=== PATIENT | male | born 1955 | race Caucasian/White ===

== ENCOUNTER 2021-10-26 08:34 | Outpatient (REF) | payer OTHER, SELFPAY ==
[2021-10-26 11:42] LABS: Appearance Urine CLEAR; Color Urine YELLOW; Glucose Urine UA NEG (NEG); Leukocyte Esterase Urine NEG (NEG); Nitrite Urine NEG (NEG); Urine Blood NEG (NEG); Urine Ketones NEG (NEG); Urine Protein NEG (NEG-TRACE)
[2021-10-26 11:52] LABS: Hematocrit 46.5 % (42.0-52.0); Hemoglobin 15.1 g/dl (14.0-18.0); Mean Corpuscular HGB Conc 32.5 g/dl (31.0-36.0); Mean Corpuscular Hemoglobin 30.1 pg (27.0-33.0); Mean Corpuscular Volume 92.8 fL (80.0-98.0); Mean Platelet Volume 11.3 fL (9.4-12.4); Platelet Count 225 X10*3/uL (160-400); Red Blood Count 5.01 X10*6/uL (4.60-5.80); Red Cell Distribution Width 12.6 % (11.0-16.0)
[2021-10-26 12:03] LABS: Alanine Aminotransferase 27 U/L (0-40); Albumin Level 4.6 g/dL (3.5-5.0); Alkaline Phosphatase 65 U/L (39-117); Anion Gap 15 (12-20); Aspartate Amino Transferase 19 U/L (5-37); Bilirubin Total 0.6 mg/dL (0.0-1.0); Blood Urea Nitrogen 24 mg/dL (9-16); Calcium 9.9 mg/dL (8.4-10.2); Carbon Dioxide 25 mmol/L (22-29); Chloride 107 mmol/L (96-108); Cholesterol 158 mg/dL; Estimated Glomerular Filt Rate > 60; Glucose Fasting 133 mg/dL (60-99); HDL Cholesterol 45 mg/dL; LDL Cholesterol Calculated 98 mg/dl; Potassium 5.7 mmol/L (3.3-5.1); Sodium 141 mmol/L (135-145); Total Protein 7.5 g/dL (6.5-8.0); Triglycerides 76 mg/dL
[2021-10-26 12:09] LABS: RBC Urine 0-2 /HPF (0); WBC Urine 0-2 /HPF (0-4)
[2021-10-26 12:23] LABS: Estimated Average Glucose 157 mg/dL; Hemoglobin A1c % 7.1 %
[2021-10-26 12:26] LABS: Prostate Specific Antigen Scr 2.42 ng/mL (<0.05-4.0)
[2021-10-26 12:27] LABS: Creatinine Urine 52.73 mg/dL; Microalbum/Creatinine Ratio Ur 9.4 ug/mg cr
== END 2021-10-26 08:35 | disposition home or self-care (01) ==
LOC: HO.HMGCLDS 08:34
PROVIDERS: Visit Provider Internal Medicine
DX: E78.5 Hyperlipidemia, unspecified (principal); E11.9 Type 2 diabetes mellitus without complications; I10 Essential (primary) hypertension; Z98.890 Other specified postprocedural states; Z12.5 Encounter for screening for malignant neoplasm of prostate
CPT/HCPCS: 36415; 80053; 80061; 81001; 82043; 83036; 84153; 85027

== ENCOUNTER 2021-11-16 05:58 | Outpatient (REF) | payer OTHER, SELFPAY ==
[2021-11-16 12:31] LABS: Potassium 4.5 mmol/L (3.3-5.1)
== END 2021-11-16 05:59 | disposition home or self-care (01) ==
LOC: HO.HMGCLDS 05:58
PROVIDERS: Visit Provider Internal Medicine
DX: E87.5 Hyperkalemia (principal)
CPT/HCPCS: 36415; 84132

== ENCOUNTER 2022-01-23 05:59 | Outpatient (REF) | payer OTHER, SELFPAY ==
[2022-01-23 11:50] LABS: Estimated Average Glucose 131 mg/dL; Hemoglobin A1c % 6.2 %
[2022-01-23 11:55] LABS: Alanine Aminotransferase 38 U/L (0-40); Albumin Level 4.3 g/dL (3.5-5.0); Alkaline Phosphatase 63 U/L (39-117); Anion Gap 12 (12-20); Aspartate Amino Transferase 25 U/L (5-37); Bilirubin Total 0.7 mg/dL (0.0-1.0); Blood Urea Nitrogen 22 mg/dL (9-16); Calcium 9.4 mg/dL (8.4-10.2); Carbon Dioxide 25 mmol/L (22-29); Chloride 107 mmol/L (96-108); Cholesterol 144 mg/dL; Estimated Glomerular Filt Rate > 60; Glucose Fasting 117 mg/dL (60-99); HDL Cholesterol 45 mg/dL; LDL Cholesterol Calculated 88 mg/dl; Potassium 4.6 mmol/L (3.3-5.1); Sodium 139 mmol/L (135-145); Triglycerides 56 mg/dL
== END 2022-01-23 06:00 | disposition home or self-care (01) ==
LOC: HO.HMGCLDS 05:59
PROVIDERS: Visit Provider Internal Medicine
DX: E11.9 Type 2 diabetes mellitus without complications (principal); E78.5 Hyperlipidemia, unspecified; I10 Essential (primary) hypertension
CPT/HCPCS: 36415; 80053; 80061; 83036

== ENCOUNTER 2022-06-21 06:05 | Outpatient (REF) | payer OTHER, SELFPAY ==
[2022-06-21 11:51] LABS: Estimated Average Glucose 137 mg/dL; Hemoglobin A1c % 6.4 %
[2022-06-21 12:07] LABS: Alanine Aminotransferase 17 U/L (0-40); Albumin Level 4.4 g/dL (3.5-5.0); Alkaline Phosphatase 67 U/L (39-117); Anion Gap 15 (12-20); Aspartate Amino Transferase 14 U/L (5-37); Bilirubin Total 0.5 mg/dL (0.0-1.0); Blood Urea Nitrogen 22 mg/dL (9-16); Calcium 9.4 mg/dL (8.4-10.2); Carbon Dioxide 25 mmol/L (22-29); Chloride 105 mmol/L (96-108); Cholesterol 136 mg/dL; Estimated Glomerular Filt Rate > 60; Glucose Fasting 126 mg/dL (60-99); HDL Cholesterol 43 mg/dL; LDL Cholesterol Calculated 81 mg/dl; Potassium 5.2 mmol/L (3.3-5.1); Sodium 140 mmol/L (135-145); Total Protein 6.9 g/dL (6.5-8.0); Triglycerides 61 mg/dL
[2022-06-21 12:21] LABS: Creatinine Urine 70.02 mg/dL; Microalbum/Creatinine Ratio Ur 7.1 ug/mg cr
== END 2022-06-21 06:06 | disposition home or self-care (01) ==
LOC: HO.HMGCLDS 06:05
PROVIDERS: PCP Internal Medicine; Visit Provider Internal Medicine
DX: E11.9 Type 2 diabetes mellitus without complications (principal); E78.5 Hyperlipidemia, unspecified; I10 Essential (primary) hypertension
CPT/HCPCS: 36415; 80053; 80061; 82043; 83036

== ENCOUNTER 2022-07-10 07:32 | Day surgery (SDC) | payer OTHER, SELFPAY ==
[2022-07-05 13:32] VITALS: BMI 23.6
--- NOTE | 2022-07-09 11:52 | HO.ANESPROP2 ---
HPI - Anesthesia Eval Consult details Narrative: 66yo M for Colonoscopy PMFSH Active Problems Active Problems: All Active Problems (Updated 03/05/22 @ 07:56 by Richelle Damon MD) Colon polyps (Acute) Abnormal skin growth (Acute) Hx of colonoscopy (Acute) HTN (hypertension) (Acute) DM type 2 (diabetes mellitus, type 2) (Acute) Hyperlipidemia (Acute) Past Medical History Medical History (Updated 03/05/22 @ 07:56 by Richelle Damon MD) Abnormal skin growth Colon polyps DM type 2 (diabetes mellitus, type 2) HTN (hypertension) Hyperlipidemia Surgical History Surgical History Hx of colonoscopy Social History Social History Household Members Other:: , 1 son, works Housing: House Patient Tobacco Use Status: Former Tobacco user e-Cigarette/Vaping Use: Never Used service: No Current occupational status: employed Cognitive needs: No Hearing needs: No Vision needs: Yes Meds Allergies Allergy/AdvReac Type Severity Reaction Status Date / Time No Known Allergies Allergy Verified 06/28/22 08:26 Exam Exam Date and Time: July 09, 2022 1152 Height,Weight and Vital Signs: Height 5 ft 7 in Weight 68.492 kg Pertinent Lab Results Pertinent Lab Results: Laboratory Tests 10/26/21 06/21/22 08:42 06:13 WBC 9.0 Hgb 15.1 Hct 46.5 Plt Count 225 Sodium 140 Potassium 5.2 H Chloride 105 Carbon Dioxide 25 BUN 22 H Creatinine 1.06 Assessment and Plan Assessment Anesthesia Assessment: Chart Reviewed
[2022-07-10 07:39] VITALS: BP 148/76; PULSE 100; RESP 18; TEMP 36.6; O2SAT 97
[2022-07-10 08:01] LABS: Glucose, Whole Blood 128 mg/dL (60-115)
[2022-07-10] MEDS: Lactated Ringers 1,000 ML 100 ML IVCONT (08:01)
--- NOTE | 2022-07-10 08:07 | HO.ANESPROP2 ---
FORMERLY [facility], LATER [facility] Active Problems Active Problems: All Active Problems (Updated 03/05/22 @ 07:56 by Richelle Damon MD) Colon polyps (Acute) Abnormal skin growth (Acute) Hx of colonoscopy (Acute) HTN (hypertension) (Acute) DM type 2 (diabetes mellitus, type 2) (Acute) Hyperlipidemia (Acute) Past Medical History Medical History (Updated 03/05/22 @ 07:56 by Richelle Damon MD) Abnormal skin growth Colon polyps DM type 2 (diabetes mellitus, type 2) HTN (hypertension) Hyperlipidemia Family History Family history of problems with anesthesia: No Surgical History Surgical History Hx of colonoscopy History of Problems with Anesthesia: No Social History Social History Household Members Other:: , 1 son, works Housing: House Patient Tobacco Use Status: Former Tobacco user e-Cigarette/Vaping Use: Never Used Are you DNR?: No Advance Directives: No Advance Directives Information Provided: Yes Recently lost weight without trying: No Nutrition Risks: No Nutritional Risk service: No Current occupational status: employed Cognitive needs: No Hearing needs: No Vision needs: Yes Meds Allergies Allergy/AdvReac Type Severity Reaction Status Date / Time No Known Allergies Allergy Verified 06/28/22 08:26 Active Medications: Current Medications Lactated Ringer's (Lr) 1,000 mls @ 100 mls/hr IVCONT .Q10H BETTY Last Admin: 07/10/22 08:01 Dose: 100 mls/hr Exam Exam Date and Time: July 10, 2022 0807 Height,Weight and Vital Signs: Height 5 ft 7 in Weight 68.492 kg Last Vital Signs Temp 98 F 07/10/22 07:39 Pulse 100 07/10/22 07:39 Resp 18 07/10/22 07:39 BP 148/76 H 07/10/22 07:39 Pulse Ox 97 07/10/22 07:39 O2 Del Method 07/10/22 07:39 Pertinent Lab Results Pertinent Lab Results: Laboratory Tests 07/10/22 07:55 POC Glucose 128 H Airway Mallampati Class: II TM Dist: >3cm Neck ROM: Full Assessment and Plan Assessment Anesthesia Assessment: Anesthesia Plan Discussed and Chart Reviewed Final Anesthetic Review Family History of Problems with Anesthesia: No History of Problems with Anesthesia: No NPO: Yes ASA Class: II Final Preanesthetic Review: No Changes in Pt Med Stat, Meds/Allgs Chart Reviewed, Consent Obtained/Reviewed and Anes Risks/Benef Reviewed Patient Risk: Low Procedure Risk: Low Anesthetic Plan Anesthetic Plan: MAC: Disposition: Standard PACU
--- NOTE | 2022-07-10 08:18 | MHC.SHP ---
Pre-Procedural Eval Section A Date of Service: 07/10/22 Section B Chief Complaint: Hx of polyps Details of Present Illness: 66y.o Afghan male with personal hx of polyps here for a surveillance colo. No GI complaints otherwise. Relevant Family History (Specify if Yes): No Relevant Social History: Tobacco Use (Former) Present Medications: see Short Stay Collaborative assessment Medical History: Significant History (HTN, DM, hyperlipidemia ) Allergies: Allergies Allergy/AdvReac Type Severity Reaction Status Date / Time No Known Allergies Allergy Verified 06/28/22 08:26 Review of Systems Review of Systems Comment: 10 point ROS negative Exam Exam Comment: Gen appear: No acute distress, well nourished HEENT: no icterus Chest: No overt resp distress CVS: S1/S2, regular Abd: soft, nontender, nondistended Psych: Stable affect, answering questions appropriately Neuro: A/Ox3 noted to move all extremities spontaneously Ext: no peripheral edema Plan Diagnosis/Plan: Unchanged I have reviewed the history and physical and performed a pertinent physical examination on my patient. No changes have occurred unless specified.
--- NOTE | 2022-07-10 08:31 | P.OP_ITS ---
Operative Note Operative Note Date of Service: 07/10/22 Narrative: Procedure: Colonoscopy Indication: Personal history of polyps Endoscopist: Shea Larios MD Anesthesia Provider: Leslie Irizarry CRNA Anesthesia type: MAC Instrument: Olympus [id number]-H190L Consent: Indication, risks vs benefits, and alternatives were discussed with the patient who gave written informed consent to proceed. [An spanish medical interpreter was utilized to assist with the consent]. Monitoring: EKG, pulse, pulse oximetry and blood pressure were monitored throughout the procedure. Please see anesthesia flowsheet. Procedure: The patient was brought to the procedure room and placed in the left lateral decubitus position. IV medications were administered by the anesthesia provider in attendance. A digital rectal exam was performed which was normal. The colonoscope was then inserted through the anus and advanced through the colon to the cecum at 80 cm. Mucosa was carefully examined under high definition white light as the instrument was slowly withdrawn in a retrograde panoramic fashion. Retroflexion was performed in rectum. The procedure was not difficult. There were no immediate obvious complications. The quality of the prep was BBPS: 1+0+1 = inadequate Withdrawal time was 19 minutes. Limitations: Poor prep. Findings: Mucosa: Suboptimal visualisation of the colon mucosa due to poor prep. Protruding lesions: * 1 sessile polyp of size 5 mm in cecum. Cold snare polypectomy was performed. The polyp was completely removed but not retrieved. * Large internal hemorrhoids Excavated lesions: * Moderate diverticulosis of left sided colon. Impression: 1. Poor prep 2. Total of 1 polyps removed from cecum but could not be retrieved due to semi solid stool and poor visualization. 3. Diverticulosis 4. Hemorrhoids Recommendations: - Repeat colonoscopy within a year for poor prep. Would recommend split PEG prep or Suprep with CLD the day before the procedure.
[2022-07-10 09:17] VITALS: BP 108/65; PULSE 89; RESP 16; TEMP 36.5; O2SAT 98
[2022-07-10 09:32] VITALS: BP 126/68; PULSE 75; RESP 18; TEMP 36.3; O2SAT 99
== END 2022-07-10 10:52 | disposition home or self-care (01) ==
PROVIDERS: PCP Internal Medicine; Visit Provider Internal Medicine
PROC: 0DJD8ZZ Inspection of Lower Intestinal Tract, Via Natural or Artificial Opening Endoscopic (ICD-10-PCS; CPT 45378; principal; 2022-07-10 08:30)
DX: Z12.11 Encounter for screening for malignant neoplasm of colon (principal); Z86.010 Personal history of colon polyps; K63.5 Polyp of colon; K57.30 Diverticulosis of large intestine without perforation or abscess without bleeding; K64.8 Other hemorrhoids; I10 Essential (primary) hypertension; E78.5 Hyperlipidemia, unspecified; E11.9 Type 2 diabetes mellitus without complications; Z79.84 Long term (current) use of oral hypoglycemic drugs; Z79.899 Other long term (current) drug therapy; Z87.891 Personal history of nicotine dependence
CPT/HCPCS: 45385; 82947

== ENCOUNTER 2022-12-13 07:06 | Outpatient (REF) | payer OTHER, SELFPAY ==
[2022-12-13 11:42] LABS: MANUAL DIFF FLAG NO
[2022-12-13 11:53] LABS: Basophils Absolute Auto 0.1 X10*3/uL (0.0-0.2); Basophils Percent Auto 0.7 % (0-2); Eosinophils Absolute Auto 0.1 X10*3/uL (0.0-0.4); Eosinophils Percent Auto 1.3 % (0-4); Hematocrit 45.9 % (42.0-52.0); Hemoglobin 15.1 g/dl (14.0-18.0); Imm Gran Abs Auto 0.03 X10*3/uL (0.00-0.03); Imm Gran Pct Auto 0.3 % (0.0-0.4); Lymphocytes Absolute Auto 1.9 X10*3/uL (1.2-4.9); Lymphocytes Percent Auto 19.4 % (20-40); Mean Corpuscular HGB Conc 32.9 g/dl (31.0-36.0); Mean Corpuscular Volume 91.3 fL (80.0-98.0); Mean Platelet Volume 10.7 fL (9.4-12.4); Monocytes Absolute Auto 0.8 X10*3/uL (0.1-1.2); Monocytes Percent Auto 8.7 % (2-11); Neutrophils Absolute Auto 6.8 x10*3/uL (2.0-8.3); Neutrophils Percent Auto 69.6 % (45-73); Platelet Count 234 X10*3/uL (160-400); Red Blood Count 5.03 X10*6/uL (4.60-5.80); Red Cell Distribution Width 13.1 % (11.0-16.0); White Blood Count 9.7 X10*3/uL (4.8-10.8)
[2022-12-13 12:08] LABS: Estimated Average Glucose 148 mg/dL; Hemoglobin A1c % 6.8 %
[2022-12-13 12:27] LABS: Anion Gap 11 (12-20); Blood Urea Nitrogen 22 mg/dL (9-16); Calcium 9.4 mg/dL (8.4-10.2); Carbon Dioxide 27 mmol/L (22-29); Chloride 108 mmol/L (96-108); Cholesterol 151 mg/dL; Estimated Glomerular Filt Rate > 60; Glucose Random 123 mg/dL (60-115); HDL Cholesterol 40 mg/dL; LDL Cholesterol Calculated 90 mg/dl; PSA,Total (Free>4and<10) 3.02 ng/mL (0.00-4.00); Potassium 5.2 mmol/L (3.3-5.1); Sodium 141 mmol/L (135-145); Triglycerides 108 mg/dL
== END 2022-12-13 07:07 | disposition home or self-care (01) ==
LOC: HO.HMGCLDS 07:06
PROVIDERS: PCP Internal Medicine; Visit Provider Internal Medicine
DX: Z12.5 Encounter for screening for malignant neoplasm of prostate (principal); E11.9 Type 2 diabetes mellitus without complications; E78.5 Hyperlipidemia, unspecified; I10 Essential (primary) hypertension
CPT/HCPCS: 36415; 80048; 80061; 83036; 84153; 85025

== ENCOUNTER 2022-12-16 06:36 | Outpatient (REF) | payer OTHER, SELFPAY ==
[2022-12-16 12:16] LABS: Microalbumin Excretion Rate Ur 13 mg/24Hr; Total Volume 24 Hour Urine 1450 mL
== END 2022-12-16 06:37 | disposition home or self-care (01) ==
LOC: HO.HMGCLNP 06:36
PROVIDERS: PCP Internal Medicine; Visit Provider Internal Medicine
DX: I10 Essential (primary) hypertension (principal); E11.9 Type 2 diabetes mellitus without complications; E78.5 Hyperlipidemia, unspecified
CPT/HCPCS: 82043

== ENCOUNTER 2023-06-21 06:30 | Outpatient (REF) | payer OTHER, SELFPAY ==
[2023-06-21 11:19] LABS: MANUAL DIFF FLAG NO
[2023-06-21 11:24] LABS: Basophils Absolute Auto 0.1 X10*3/uL (0.0-0.2); Eosinophils Absolute Auto 0.7 X10*3/uL (0.0-0.4); Eosinophils Percent Auto 7.9 % (0-4); Hematocrit 46.6 % (42.0-52.0); Hemoglobin 15.1 g/dl (14.0-18.0); Imm Gran Abs Auto 0.03 X10*3/uL (0.00-0.03); Imm Gran Pct Auto 0.4 % (0.0-0.4); Lymphocytes Absolute Auto 1.6 X10*3/uL (1.2-4.9); Lymphocytes Percent Auto 18.6 % (20-40); Mean Corpuscular HGB Conc 32.4 g/dl (31.0-36.0); Mean Corpuscular Hemoglobin 30.4 pg (27.0-33.0); Mean Corpuscular Volume 93.8 fL (80.0-98.0); Mean Platelet Volume 11.2 fL (9.4-12.4); Monocytes Absolute Auto 0.9 X10*3/uL (0.1-1.2); Monocytes Percent Auto 10.8 % (2-11); Neutrophils Absolute Auto 5.1 x10*3/uL (2.0-8.3); Neutrophils Percent Auto 61.3 % (45-73); Platelet Count 217 X10*3/uL (160-400); Red Blood Count 4.97 X10*6/uL (4.60-5.80); Red Cell Distribution Width 12.9 % (11.0-16.0); White Blood Count 8.3 X10*3/uL (4.8-10.8)
[2023-06-21 11:44] LABS: Alanine Aminotransferase 21 U/L (0-40); Albumin Level 4.6 g/dL (3.5-5.0); Alkaline Phosphatase 66 U/L (39-117); Anion Gap 15 (12-20); Aspartate Amino Transferase 17 U/L (5-37); Bilirubin Total 0.6 mg/dL (0.0-1.0); Blood Urea Nitrogen 22 mg/dL (9-16); Calcium 9.9 mg/dL (8.4-10.2); Carbon Dioxide 24 mmol/L (22-29); Chloride 106 mmol/L (96-108); Cholesterol 150 mg/dL (<200); Estimated Glomerular Filt Rate > 60; Glucose Fasting 133 mg/dL (60-99); HDL Cholesterol 39 mg/dL (>40); LDL Cholesterol Calculated 94 mg/dL (<100); Potassium 4.7 mmol/L (3.3-5.1); Sodium 140 mmol/L (135-145); Total Protein 7.7 g/dL (6.5-8.0); Triglycerides 89 mg/dL (<150)
[2023-06-21 11:48] LABS: Estimated Average Glucose 140 mg/dL; Hemoglobin A1c % 6.5 % (<6.0)
== END 2023-06-21 06:31 | disposition home or self-care (01) ==
LOC: HO.HMGCLDS 06:30
PROVIDERS: PCP Internal Medicine; Visit Provider Internal Medicine
DX: I10 Essential (primary) hypertension (principal); E78.5 Hyperlipidemia, unspecified; E11.9 Type 2 diabetes mellitus without complications
CPT/HCPCS: 36415; 80053; 80061; 83036; 85025

== ENCOUNTER 2023-06-30 07:52 | Outpatient (AMB) | payer OTHER, SELFPAY ==
--- NOTE | 2023-06-30 08:07 | A.OFFPC_ITS ---
Vital Signs 06/30/23 08:11 Height 5 ft 7 in Weight 158 lb BMI 24.7 BP 128/74 Blood Pressure Location Lt brachial Position Sitting Pulse 102 H Pulse Source Pulse Oximeter Pulse Oximetry (%) 98 Oxygen Delivery Method Room Air Intake Visit Reasons: PE Intake Note: Pt is here today for PE. Allergies No Known Allergies Allergy (Verified 06/30/23 08:13) Tobacco use date assessed: 06/30/23 Dental Screening Dental Screen Date: 06/30/23 Did you have a dental visit in the last 12 months?: Yes Did you have a dental problem in the last 6 months where you did not have access to dental care?: No Was dental information given to patient?: Patient has dentist HPI PE HPI Details Patient presents for physical PFSH Medical History Colon polyps Abnormal skin growth HTN (hypertension) DM type 2 (diabetes mellitus, type 2) Hyperlipidemia Surgical History Hx of colonoscopy Family History Father Hypertension Mother Hypertension Diabetes Social History Household Members Other:: , 1 son, works Housing: House Patient Tobacco Use Status: Former Tobacco user e-Cigarette/Vaping Use: Never Used service: No Current occupational status: employed Cognitive needs: No Hearing needs: No Vision needs: Yes Questionnaire Thrive Questionnaire Date Thrive assessed: 12/24/22 DENVER-7 AMB Questionnaire DENVER-7 Date DENVER - 7 assessed: 12/24/22 Source: Developed by Drs. Roberto Vergara, aCrolin Roy, Shay Campos and colleagues, with an educational goldy from [employer]. Review of Systems Const All systems reviewed & are unremarkable except as noted in HPI and below Reports no additional complaints Eyes Reports no additional complaints ENT Reports no additional complaints Card Reports no additional complaints Resp Reports no additional complaints GI Reports no additional complaints Reports no additional complaints Physical exam (Primary Care) Vital Signs: Last Vital Signs Pulse 102 H 06/30/23 08:11 BP 128/74 06/30/23 08:11 Pulse Ox 98 06/30/23 08:11 Oxygen Delivery Method Room Air 06/30/23 08:11 BMI result Body Mass Index 24.7 Tobacco/Smoking Status: Tobacco use Status Tobacco use date assessed 06/30/23 06/30/23 08:15 Patient Tobacco Use Status Former Tobacco user 06/30/23 08:08 e-Cigarette/Vaping Use Never Used 06/30/23 08:08 Thrive Assessment: Date of Thrive Assessment Date Thrive assessed 12/24/22 06/30/23 08:08 Const General: no acute distress HENMT Head: Yes normal to inspection Ears: hearing grossly normal bilaterally Mouth: Normal oral and palatal mucosa present Throat: Yes posterior oropharynx normal Eyes General: appearance normal, both eyes and all related structures Neck Neck: Yes supple Resp Effort & Inspection: normal respiratory effort Auscultation: clear to auscultation bilaterally Cardio Rhythm: regular rhythm Heart sounds: S1 normal heart sound present and S2 normal heart sound present GI Inspection: Yes normal to inspection Palpation (GI): Soft to palpation Percussion: Yes normal to percussion Auscultation: normal bowel sounds Assessment and Plan Assessment & Plan (1) DM type 2 (diabetes mellitus, type 2): Code(s): E11.9 - Type 2 diabetes mellitus without complications Plan: A1C 6.5, ADA diet, increase exercise, add Farxiga 50 mg, f/u 4 months (2) Hyperlipidemia: Code(s): E78.5 - Hyperlipidemia, unspecified Plan: Continue statin (3) HTN (hypertension): Code(s): I10 - Essential (primary) hypertension Plan: Continue current medications (4) Annual physical exam: Code(s): Z00.00 - Encounter for general adult medical examination without abnormal findings Plan: Well-balanced diet regular exercise discussed with the patient, follow-up in 4 months Orders: Orders Comprehensive [place]. Panel Fast 4 Months E11.9 - Type 2 diabetes mellitus without complications, E78.5 - Hyperlipidemia, unspecified, I10 - Essential (primary) hypertension Hemoglobin A1c 4 Months E11.9 - Type 2 diabetes mellitus without complications, E78.5 - Hyperlipidemia, unspecified, I10 - Essential (primary) hypertension Lipid Panel 4 Months E11.9 - Type 2 diabetes mellitus without complications, E78.5 - Hyperlipidemia, unspecified, I10 - Essential (primary) hypertension Complete Blood Count Man Dif 4 Months E11.9 - Type 2 diabetes mellitus without complications, E78.5 - Hyperlipidemia, unspecified, I10 - Essential (primary) hypertension Microalbumin, Random (w Creat) 4 Months E11.9 - Type 2 diabetes mellitus without complications, E78.5 - Hyperlipidemia, unspecified, I10 - Essential (primary) hypertension Medications: New dapagliflozin propanediol (Farxiga) 5 mg PO DAILY 90 tabs 0RF dapagliflozin propanediol (Farxiga) 5 mg PO DAILY 90 tabs 0RF Refilled lisinopril 10 mg PO DAILY 90 tabs 3RF Coding Level of Care Code Est Pt Prev Care >65y(22702) Diagnoses DM type 2 (diabetes mellitus, type 2) E11.9 Hyperlipidemia E78.5 HTN (hypertension) I10 Annual physical exam Z00.00
[2023-06-30 08:11] VITALS: BP 128/74; PULSE 102; O2SAT 98; BMI 24.7
== END 2023-06-30 10:14 | disposition home or self-care (01) ==
PROVIDERS: Visit Provider Internal Medicine
DX: E11.9 Type 2 diabetes mellitus without complications (principal); E78.5 Hyperlipidemia, unspecified; I10 Essential (primary) hypertension; Z00.00 Encounter for general adult medical examination without abnormal findings
CPT/HCPCS: 99397

== ENCOUNTER 2023-10-24 06:02 | Outpatient (REF) | payer OTHER, SELFPAY ==
[2023-10-24 11:35] LABS: Estimated Average Glucose 137 mg/dL; Hemoglobin A1c % 6.4 % (<6.0)
[2023-10-24 11:44] LABS: Alanine Aminotransferase 23 U/L (0-40); Albumin Level 4.6 g/dL (3.5-5.0); Alkaline Phosphatase 57 U/L (39-117); Anion Gap 12 (12-20); Aspartate Amino Transferase 17 U/L (5-37); Bilirubin Total 0.6 mg/dL (0.0-1.0); Blood Urea Nitrogen 24 mg/dL (9-16); Calcium 9.1 mg/dL (8.4-10.2); Carbon Dioxide 24 mmol/L (22-29); Chloride 106 mmol/L (96-108); Cholesterol 158 mg/dL (<200); Estimated Glomerular Filt Rate > 60; Glucose Fasting 142 mg/dL (60-99); HDL Cholesterol 43 mg/dL (>40); LDL Cholesterol Calculated 101 mg/dL (<100); Potassium 4.3 mmol/L (3.3-5.1); Sodium 138 mmol/L (135-145); Total Protein 7.6 g/dL (6.5-8.0); Triglycerides 72 mg/dL (<150)
[2023-10-24 12:27] LABS: Creatinine Urine 91.45 mg/dL; Microalbum/Creatinine Ratio Ur 15.3 ug/mg cr (<30)
[2023-10-24 12:29] LABS: Baso%MD 0.6 %; Eos%MD 1.1 %; Hematocrit 48.6 % (42.0-52.0); Hemoglobin 16.1 g/dl (14.0-18.0); IG%MD 0.6 %; Lymph%MD 17.6 %; Mean Corpuscular HGB Conc 33.1 g/dl (31.0-36.0); Mean Corpuscular Hemoglobin 30.3 pg (27.0-33.0); Mean Corpuscular Volume 91.5 fL (80.0-98.0); Mean Platelet Volume 11.3 fL (9.4-12.4); Mono%MD 8.9 %; Neut%MD 71.2 %; Platelet Count 214 X10*3/uL (160-400); Red Blood Count 5.31 X10*6/uL (4.60-5.80); Red Cell Distribution Width 13.1 % (11.0-16.0); White Blood Count 10.5 X10*3/uL (4.8-10.8)
[2023-10-24 13:45] LABS: Band Neutrophils Percent 0 % (3-5); Eosinophils Absolute Manual 0.3 X10*3/uL (0.0-0.4); Eosinophils Percent Manual 3 % (0-4); Lymphocytes Absolute Manual 1.1 X10*3/uL (1.2-4.9); Lymphocytes Percent Manual 10 % (20-40); Monocytes Absolute Manual 0.9 X10*3/uL (0.1-1.2); Monocytes Percent Manual 9 % (2-11); Neutrophils Absolute Manual 8.2 X10*3/uL (2.0-8.3); Neutrophils Percent Manual 78 % (45-73); Platelet Estimate NORMAL (NORMAL); Platelet Morphology Comment NORMAL; RBC Morphology NORMAL
== END 2023-10-24 06:03 | disposition home or self-care (01) ==
LOC: HO.HMGCLDS 06:02
PROVIDERS: PCP Internal Medicine; Visit Provider Internal Medicine
DX: I10 Essential (primary) hypertension (principal); E11.9 Type 2 diabetes mellitus without complications; E78.5 Hyperlipidemia, unspecified
CPT/HCPCS: 36415; 80053; 80061; 82043; 82570; 83036; 85007; 85027

== ENCOUNTER 2023-10-27 07:52 | Outpatient (AMB) | payer OTHER, SELFPAY ==
[2023-10-27 07:57] VITALS: BP 118/60; PULSE 102; O2SAT 97; BMI 24.3
--- NOTE | 2023-10-27 07:57 | MHC.PC.OV ---
Vital Signs 10/27/23 07:57 Height 5 ft 7 in Weight 155 lb BMI 24.3 BP 118/60 Blood Pressure Location Rt brachial Position Sitting Pulse 102 H Pulse Source Pulse Oximeter Pulse Oximetry (%) 97 Oxygen Delivery Method Room Air Intake Visit Reasons: 4 month follow up Intake Note: Pt is here today for a 4 months follow up visit. Allergies No Known Allergies Allergy (Verified 10/27/23 07:59) Medication List - Last Reconciled 10/27/23 by Richelle Damon MD atorvastatin 10 mg PO DAILY blood sugar diagnostic (FreeStyle Lite Strips) Test blood sugars once a day dapagliflozin propanediol (Farxiga) 5 mg PO DAILY hydrocortisone-pramoxine 1-1 % (Proctofoam HC) 1 appl LA DAILY PRN lancets (FreeStyle Lancets) test blood sugars once a day lisinopril 10 mg PO DAILY metformin 1,000 mg PO BID methylcellulose (laxative) (Citrucel Sugar Free oral powder) 2 grams PO DAILY PRN Tobacco use date assessed: 10/27/23 Fall risk assessment: No Falls in past year Last assessed Fall Risk: 10/27/23 Dental Screening Dental Screen Date: 10/27/23 Did you have a dental visit in the last 12 months?: No Did you have a dental problem in the last 6 months where you did not have access to dental care?: No Was dental information given to patient?: Patient declined HPI 4 month follow up HPI Details Pt presents for F/U HTN, hyperlipid, HTN, stable on meds. PFSH Medical History Colon polyps Abnormal skin growth HTN (hypertension) DM type 2 (diabetes mellitus, type 2) Hyperlipidemia Surgical History Hx of colonoscopy Family History Father Hypertension Mother Hypertension Diabetes Social History Household Members Other:: , 1 son, works Housing: House Patient Tobacco Use Status: Former Tobacco user e-Cigarette/Vaping Use: Never Used service: No Current occupational status: employed Cognitive needs: No Hearing needs: No Vision needs: Yes Questionnaire PHQ-9 Over the last 2 weeks, how often have you been bothered by any of the following problems? 1. Little interest or pleasure in doing things: not at all 2. Feeling down, depressed, or hopeless: not at all 3. Trouble falling or staying asleep, or sleeping too much: not at all 4. Feeling tired or having little energy: not at all 5. Poor appetite or overeating: not at all 6. Feeling bad about yourself - or that you are a failure or have let yourself or your family down: not at all 7. Trouble concentrating on things, such as reading the newspaper or watching television: not at all 8. Moving or speaking so slowly that other people could have noticed. Or the opposite - being so fidgety or restless that you have been moving around a lot more than usual: not at all 9. Thoughts that you would be better off or of hurting yourself in some way: not at all Total score: 0 Depression Screening Interpretation: Negative Depression Screening Done: Yes Source: Developed by Drs. Roberto Vergara, Carolin Roy, Shay Campos and colleagues, with an educational goldy from [employer]. Thrive Questionnaire Date Thrive assessed: 10/27/23 I am a: Patient What is your living situation today?: I have a steady place to live Within the past 12 months, did the food you bought not last and you didn't have the money to get more?: Never true Within the past 12 months, did you worry whether your food would run out before you got money to buy more?: Never true Do you have trouble paying for medicines?: No Do you have trouble getting transportation to medical appointments?: No Do you have trouble paying your heating and electricity bill?: No Do you have trouble taking care of your child, family member or friend?: No Do you have trouble with day-to-day activities such as bathing, preparing meals, shopping, managing finances, etc.?: No Are you currently unemployed and looking for a job?: No Are you interested in more education?: No Please select the resources that you would like help with: None Currently or been in a relationship where the following occur: no concerns reported THRIVE Score: 0 AUDIT C Alcohol Use Questionnaire (AUDIT-C) 1. How often do you have a drink containing alcohol?: Never 3. How often do you have six or more drinks on one occasion?: Never Total Score: 0 DENVER-7 AMB Questionnaire DENVER-7 Date DENVER - 7 assessed: 10/27/23 Feeling nervous, anxious, or on edge: 0 = Not at all Not being able to stop or control worryin = Not at all Worrying too much about different things: 0 = Not at all Trouble relaxin = Not at all Being so restless that it is hard to sit still: 0 = Not at all Becoming easily annoyed or irritable: 0 = Not at all Feeling afraid as if something awful might happen: 0 = Not at all Total DENVER-7 score (0-4 normal; 5-9 mild; 10-14 moderate; 15-21 severe): 0 Source: Developed by Drs. Roberto Vergara, Carolin Roy, Shay Campos and colleagues, with an educational goldy from [employer]. Review of Systems Const All systems reviewed & are unremarkable except as noted in HPI and below Reports no additional complaints Eyes Reports no additional complaints ENT Reports no additional complaints Card Reports no additional complaints Resp Reports no additional complaints GI Reports no additional complaints Reports no additional complaints Musc Reports no additional complaints Physical exam (Primary Care) Vital Signs: Last Vital Signs Pulse 102 H 10/27/23 07:57 BP 118/60 10/27/23 07:57 Pulse Ox 97 10/27/23 07:57 Oxygen Delivery Method Room Air 10/27/23 07:57 BMI result Body Mass Index 24.3 Tobacco/Smoking Status: Tobacco use Status Tobacco use date assessed 10/27/23 10/27/23 08:02 Patient Tobacco Use Status Former Tobacco user 10/27/23 08:02 e-Cigarette/Vaping Use Never Used 10/27/23 08:02 PHQ-9: PHQ-9 Score PHQ-9: Total score 0 10/27/23 08:28 Depression Screening Interpretation: Negative Thrive Assessment: Date of Thrive Assessment Date Thrive assessed 10/27/23 10/27/23 08:28 Currently or been in a relationship where the following occur: no concerns reported Const General: no acute distress Eyes General: appearance normal, both eyes and all related structures Neck Neck: Yes no lymphadenopathy and Yes supple Resp Effort & Inspection: normal respiratory effort Auscultation: clear to auscultation bilaterally Cardio Rhythm: regular rhythm Heart sounds: S1 normal heart sound present and S2 normal heart sound present GI Inspection: Yes normal to inspection Palpation (GI): Soft to palpation Percussion: Yes normal to percussion Auscultation: normal bowel sounds Assessment and Plan Assessment & Plan (1) HTN (hypertension): Code(s): I10 - Essential (primary) hypertension Plan: Continue lisinopril (2) DM type 2 (diabetes mellitus, type 2): Code(s): E11.9 - Type 2 diabetes mellitus without complications Plan: A1c is 6.4, ADA diet increase physical activity discussed with the patient increase Farxiga to 10 mg and continue metformin. Patient will follow-up in 4 months with a fasting labs before (3) Hyperlipidemia: Code(s): E78.5 - Hyperlipidemia, unspecified Plan: Increase atorvastatin to 20 mg for the LDL of less than 100 Orders: Orders Hemoglobin A1c 4 Months E11.9 - Type 2 diabetes mellitus without complications, E78.5 - Hyperlipidemia, unspecified, I10 - Essential (primary) hypertension Microalbumin, Random (w Creat) 4 Months E11.9 - Type 2 diabetes mellitus without complications, E78.5 - Hyperlipidemia, unspecified, I10 - Essential (primary) hypertension Comprehensive [place]. Panel Fast 4 Months E11.9 - Type 2 diabetes mellitus without complications, E78.5 - Hyperlipidemia, unspecified, I10 - Essential (primary) hypertension Lipid Panel 4 Months E11.9 - Type 2 diabetes mellitus without complications, E78.5 - Hyperlipidemia, unspecified, I10 - Essential (primary) hypertension Complete Blood Count Auto Diff 4 Months E11.9 - Type 2 diabetes mellitus without complications, E78.5 - Hyperlipidemia, unspecified, I10 - Essential (primary) hypertension Medications: New dapagliflozin propanediol (Farxiga) 10 mg PO DAILY 90 tabs 3RF atorvastatin 20 mg PO BEDTIME 90 tabs 3RF atorvastatin 20 mg PO BEDTIME 90 tabs 3RF Discontinued atorvastatin Discontinued Reason: Doctor's Order 10 mg PO DAILY 90 tabs 3RF dapagliflozin propanediol (Farxiga) Discontinued Reason: Doctor's Order 5 mg PO DAILY 90 tabs 0RF Coding Level of Care Code Est Pt Level 4 (25829) Diagnoses HTN (hypertension) I10 DM type 2 (diabetes mellitus, type 2) E11.9 Hyperlipidemia E78.5
== END 2023-10-27 08:44 | disposition home or self-care (01) ==
PROVIDERS: PCP Internal Medicine; Visit Provider Internal Medicine
DX: I10 Essential (primary) hypertension (principal); E11.9 Type 2 diabetes mellitus without complications; E78.5 Hyperlipidemia, unspecified
CPT/HCPCS: 99214

== ENCOUNTER 2024-03-13 07:05 | Outpatient (REF) | payer OTHER, SELFPAY ==
[2024-03-13 10:55] LABS: MANUAL DIFF FLAG NO
[2024-03-13 11:01] LABS: Basophils Absolute Auto 0.1 X10*3/uL (0.0-0.2); Basophils Percent Auto 0.5 % (0-2); Eosinophils Absolute Auto 0.2 X10*3/uL (0.0-0.4); Eosinophils Percent Auto 1.6 % (0-4); Hemoglobin 15.2 g/dl (14.0-18.0); Imm Gran Abs Auto 0.05 X10*3/uL (0.00-0.03); Imm Gran Pct Auto 0.4 % (0.0-0.4); Lymphocytes Absolute Auto 2.4 X10*3/uL (1.2-4.9); Lymphocytes Percent Auto 21.1 % (20-40); Mean Corpuscular Hemoglobin 30.4 pg (27.0-33.0); Mean Platelet Volume 10.7 fL (9.4-12.4); Monocytes Percent Auto 8.9 % (2-11); Neutrophils Absolute Auto 7.5 x10*3/uL (2.0-8.3); Neutrophils Percent Auto 67.5 % (45-73); Platelet Count 212 X10*3/uL (160-400); Red Cell Distribution Width 13.6 % (11.0-16.0); White Blood Count 11.2 X10*3/uL (4.8-10.8)
[2024-03-13 11:08] LABS: Estimated Average Glucose 134 mg/dL; Hemoglobin A1c % 6.3 % (<6.0)
[2024-03-13 11:17] LABS: Alanine Aminotransferase 17 U/L (0-40); Albumin Level 4.4 g/dL (3.5-5.0); Alkaline Phosphatase 56 U/L (39-117); Anion Gap 15 (12-20); Aspartate Amino Transferase 15 U/L (5-37); Bilirubin Total 0.6 mg/dL (0.0-1.0); Blood Urea Nitrogen 22 mg/dL (9-16); Calcium 9.6 mg/dL (8.4-10.2); Carbon Dioxide 21 mmol/L (22-29); Chloride 109 mmol/L (96-108); Cholesterol 123 mg/dL (<200); Estimated Glomerular Filt Rate > 60; Glucose Fasting 125 mg/dL (60-99); HDL Cholesterol 38 mg/dL (>40); LDL Cholesterol Calculated 71 mg/dL (<100); Potassium 4.6 mmol/L (3.3-5.1); Sodium 140 mmol/L (135-145); Total Protein 7.2 g/dL (6.5-8.0); Triglycerides 73 mg/dL (<150)
[2024-03-13 11:28] LABS: Creatinine Urine 84.42 mg/dL; Microalbum/Creatinine Ratio Ur 14.2 ug/mg cr (<30)
== END 2024-03-13 07:06 | disposition home or self-care (01) ==
LOC: HO.HMGCLDS 07:05
PROVIDERS: PCP Internal Medicine; Visit Provider Internal Medicine
DX: I10 Essential (primary) hypertension (principal); E11.9 Type 2 diabetes mellitus without complications; E78.5 Hyperlipidemia, unspecified
CPT/HCPCS: 36415; 80053; 80061; 82043; 82570; 83036; 85025

== ENCOUNTER 2024-03-22 08:10 | Outpatient (AMB) | payer OTHER, SELFPAY ==
[2024-03-22 08:12] VITALS: BP 110/66; PULSE 96; O2SAT 99; BMI 24.0
--- NOTE | 2024-03-22 08:12 | A.OFFPC_ITS ---
Vital Signs 03/22/24 08:12 Height 5 ft 7 in Weight 153 lb BMI 24.0 BP 110/66 Blood Pressure Location Rt brachial Position Sitting Pulse 96 Pulse Source Pulse Oximeter Pulse Oximetry (%) 99 Oxygen Delivery Method Room Air Intake Visit Reasons: 4 month follow up Intake Note: Pt is here today for 4 months follow up visit. Allergies No Known Allergies Allergy (Verified 03/22/24 08:12) Medication List - Last Reconciled 03/22/24 by Richelle Damon MD atorvastatin 20 mg PO BEDTIME Contour Next EZ Meter (blood-glucose meter) As directed NS Contour Next Test Strips (blood sugar diagnostic) Test blood sugar once a day NS dapagliflozin propanediol (Farxiga) 10 mg PO DAILY hydrocortisone-pramoxine 1-1 % (Proctofoam HC) 1 appl RI DAILY PRN lancets (Microlet Lancet) Test blood sugar once a day lisinopril 10 mg PO DAILY metformin 1,000 mg PO BID methylcellulose (laxative) (Citrucel Sugar Free oral powder) 2 grams PO DAILY PRN Tobacco use date assessed: 03/22/24 Dental Screening Dental Screen Date: 10/27/23 HPI 4 month follow up HPI Details Pt presents for F/U DM 2, hyperlipid, HTN, stable on meds. [facility] Medical History Colon polyps Abnormal skin growth HTN (hypertension) DM type 2 (diabetes mellitus, type 2) Hyperlipidemia Surgical History Hx of colonoscopy Family History Father Hypertension Mother Hypertension Diabetes Social History Household Members Other:: , 1 son, works Housing: House Patient Tobacco Use Status: Former Tobacco user e-Cigarette/Vaping Use: Never Used service: No Current occupational status: employed Cognitive needs: No Hearing needs: No Vision needs: Yes Questionnaire PHQ-9 Over the last 2 weeks, how often have you been bothered by any of the following problems? 1. Little interest or pleasure in doing things: not at all 2. Feeling down, depressed, or hopeless: not at all 3. Trouble falling or staying asleep, or sleeping too much: not at all 4. Feeling tired or having little energy: not at all 5. Poor appetite or overeating: not at all 6. Feeling bad about yourself - or that you are a failure or have let yourself or your family down: not at all 7. Trouble concentrating on things, such as reading the newspaper or watching television: not at all 8. Moving or speaking so slowly that other people could have noticed. Or the opposite - being so fidgety or restless that you have been moving around a lot more than usual: not at all 9. Thoughts that you would be better off or of hurting yourself in some way: not at all Total score: 0 Depression Screening Interpretation: Negative Depression Screening Done: Yes Source: Developed by Drs. Roberto Vergara, Carolin Roy, Shay Campos and colleagues, with an educational goldy from [employer]. Thrive Questionnaire Date Thrive assessed: 03/22/24 I am a: Patient What is your living situation today?: I have a steady place to live Within the past 12 months, did the food you bought not last and you didn't have the money to get more?: Never true Within the past 12 months, did you worry whether your food would run out before you got money to buy more?: Never true Do you have trouble paying for medicines?: No Do you have trouble getting transportation to medical appointments?: No Do you have trouble paying your heating and electricity bill?: No Do you have trouble taking care of your child, family member or friend?: No Do you have trouble with day-to-day activities such as bathing, preparing meals, shopping, managing finances, etc.?: No Are you currently unemployed and looking for a job?: No Are you interested in more education?: No Please select the resources that you would like help with: Housing/Half-Way Currently or been in a relationship where the following occur: No concerns reported THRIVE Score: 0 AUDIT C Alcohol Use Questionnaire (AUDIT-C) 1. How often do you have a drink containing alcohol?: Monthly or less 2. How many drinks containing alcohol do you have on a typical day when you are drinking?: 1 or 2 3. How often do you have six or more drinks on one occasion?: Never Total Score: 1 DENVER-7 AMB Questionnaire DENVER-7 Date DENVER - 7 assessed: 03/22/24 Feeling nervous, anxious, or on edge: 0 = Not at all Not being able to stop or control worryin = Not at all Worrying too much about different things: 0 = Not at all Trouble relaxin = Not at all Being so restless that it is hard to sit still: 0 = Not at all Becoming easily annoyed or irritable: 0 = Not at all Feeling afraid as if something awful might happen: 0 = Not at all Total DENVER-7 score (0-4 normal; 5-9 mild; 10-14 moderate; 15-21 severe): 0 Source: Developed by Drs. Roberto Vergara, Carolin Roy, Shay Campos and colleagues, with an educational goldy from [employer]. Review of Systems Const All systems reviewed & are unremarkable except as noted in HPI and below Reports no additional complaints Eyes Reports no additional complaints ENT Reports no additional complaints Card Reports no additional complaints Resp Reports no additional complaints GI Reports no additional complaints Reports no additional complaints Physical exam (Primary Care) Vital Signs: Last Vital Signs Pulse 96 03/22/24 08:12 BP 110/66 03/22/24 08:12 Pulse Ox 99 03/22/24 08:12 Oxygen Delivery Method Room Air 03/22/24 08:12 BMI result Body Mass Index 24.0 Tobacco/Smoking Status: Tobacco use Status Tobacco use date assessed 03/22/24 03/22/24 08:32 Patient Tobacco Use Status Former Tobacco user 03/22/24 08:13 e-Cigarette/Vaping Use Never Used 03/22/24 08:13 PHQ-9: PHQ-9 Score PHQ-9: Total score 0 03/22/24 08:34 Depression Screening Interpretation: Negative Thrive Assessment: Date of Thrive Assessment Date Thrive assessed 03/22/24 03/22/24 08:32 Currently or been in a relationship where the following occur: No concerns reported Const General: no acute distress HENMT Head: Yes normal to inspection Ears: hearing grossly normal bilaterally Face and sinus: Yes normal facial exam Mouth: Normal oral and palatal mucosa present Throat: Yes posterior oropharynx normal Eyes General: appearance normal, both eyes and all related structures Neck Neck: Yes no lymphadenopathy and Yes supple Resp Effort & Inspection: normal respiratory effort Auscultation: clear to auscultation bilaterally Cardio Rhythm: regular rhythm Heart sounds: S1 normal heart sound present and S2 normal heart sound present GI Inspection: Yes normal to inspection Palpation (GI): Soft to palpation Percussion: Yes normal to percussion Auscultation: normal bowel sounds Assessment and Plan Assessment & Plan (1) HTN (hypertension): Code(s): I10 - Essential (primary) hypertension Plan: cont Lisinopril (2) DM type 2 (diabetes mellitus, type 2): Code(s): E11.9 - Type 2 diabetes mellitus without complications Plan: A1C 6.3, ADA diet, regular exercise, continue current medications return for physical in June (3) Hyperlipidemia: Code(s): E78.5 - Hyperlipidemia, unspecified Plan: Continue statin Orders: Orders Comprehensive [place]. Panel Fast 3 Months E11.9 - Type 2 diabetes mellitus without complications, E78.5 - Hyperlipidemia, unspecified, I10 - Essential (primary) hypertension Lipid Panel 3 Months E11.9 - Type 2 diabetes mellitus without complications, E78.5 - Hyperlipidemia, unspecified, I10 - Essential (primary) hypertension Microalbumin, Random (w Creat) 3 Months E11.9 - Type 2 diabetes mellitus without complications, E78.5 - Hyperlipidemia, unspecified, I10 - Essential (primary) hypertension PSA,Total (Free>4and<10) 3 Months E11.9 - Type 2 diabetes mellitus without complications, E78.5 - Hyperlipidemia, unspecified, I10 - Essential (primary) hypertension Hemoglobin A1c 3 Months E11.9 - Type 2 diabetes mellitus without complications, E78.5 - Hyperlipidemia, unspecified, I10 - Essential (primary) hypertension Coding Level of Care Code Est Pt Level 4 (48826) Diagnoses HTN (hypertension) I10 DM type 2 (diabetes mellitus, type 2) E11.9 Hyperlipidemia E78.5
== END 2024-03-22 09:51 | disposition home or self-care (01) ==
PROVIDERS: PCP Internal Medicine; Visit Provider Internal Medicine
DX: I10 Essential (primary) hypertension (principal); E11.9 Type 2 diabetes mellitus without complications; E78.5 Hyperlipidemia, unspecified
CPT/HCPCS: 99214

== ENCOUNTER 2024-06-26 06:32 | Outpatient (REF) | payer OTHER, SELFPAY ==
[2024-06-26 11:55] LABS: Estimated Average Glucose 140 mg/dL; Hemoglobin A1C 178.9352 umol/L; Hemoglobin A1c % 6.5 % (<6.0); Total Hemoglobin (HGBA1C) 3775.5798 umol/L
[2024-06-26 12:14] LABS: Alanine Aminotransferase 22 U/L (0-40); Albumin Level 4.6 g/dL (3.5-5.0); Alkaline Phosphatase 62 U/L (39-117); Anion Gap 12 (12-20); Aspartate Amino Transferase 19 U/L (5-37); Bilirubin Total 0.4 mg/dL (0.0-1.0); Blood Urea Nitrogen 21 mg/dL (9-16); Calcium 9.6 mg/dL (8.4-10.2); Carbon Dioxide 24 mmol/L (22-29); Chloride 109 mmol/L (96-108); Cholesterol 135 mg/dL (<200); Estimated Glomerular Filt Rate > 60; Glucose Fasting 121 mg/dL (60-99); HDL Cholesterol 46 mg/dL (>40); LDL Cholesterol Calculated 78 mg/dL (<100); Potassium 4.2 mmol/L (3.3-5.1); Sodium 141 mmol/L (135-145); Total Protein 7.6 g/dL (6.5-8.0); Triglycerides 56 mg/dL (<150)
[2024-06-26 12:25] LABS: Creatinine Urine 74.65 mg/dL; Microalbum/Creatinine Ratio Ur 17.4 ug/mg cr (<30)
[2024-06-26 12:27] LABS: PSA,Total (Free>4and<10) 3.41 ng/mL (0.00-4.00)
== END 2024-06-26 06:33 | disposition home or self-care (01) ==
LOC: HO.HMGCLDS 06:32
PROVIDERS: PCP Internal Medicine; Visit Provider Internal Medicine
DX: I10 Essential (primary) hypertension (principal); E11.9 Type 2 diabetes mellitus without complications; E78.5 Hyperlipidemia, unspecified; Z12.5 Encounter for screening for malignant neoplasm of prostate
CPT/HCPCS: 36415; 80053; 80061; 82043; 82570; 83036; 84153

== ENCOUNTER 2024-07-05 08:03 | Outpatient (AMB) | payer OTHER, SELFPAY ==
--- NOTE | 2024-07-05 08:09 | A.OFFPC_ITS ---
Vital Signs 07/05/24 08:11 Height 5 ft 7 in Weight 153 lb BMI 24.0 BP 116/66 Blood Pressure Location Lt brachial Position Sitting Pulse 96 Pulse Source Pulse Oximeter Pulse Oximetry (%) 96 Oxygen Delivery Method Room Air Intake Visit Reasons: Annual PE Intake Note: Pt is here today for PE. Allergies No Known Allergies Allergy (Verified 07/05/24 08:11) Medication List - Last Reconciled 07/05/24 by Richelle Damon MD atorvastatin 20 mg PO BEDTIME Contour Next EZ Meter (blood-glucose meter) As directed NS Contour Next Test Strips (blood sugar diagnostic) Test blood sugar once a day NS dapagliflozin propanediol (Farxiga) 10 mg PO DAILY hydrocortisone-pramoxine 1-1 % (Proctofoam HC) 1 appl [place] DAILY PRN lancets (Microlet Lancet) Test blood sugar once a day lisinopril 10 mg PO DAILY metformin 1,000 mg PO BID methylcellulose (laxative) (Citrucel Sugar Free oral powder) 2 grams PO DAILY PRN Tobacco use date assessed: 07/05/24 Dental Screening Dental Screen Date: 10/27/23 HPI Annual PE HPI Details Pt presents for PE. Pt is moving to [place] in February. [facility] Medical History Colon polyps Abnormal skin growth HTN (hypertension) DM type 2 (diabetes mellitus, type 2) Hyperlipidemia Surgical History Hx of colonoscopy Family History Father Hypertension Mother Hypertension Diabetes Social History Household Members Other:: , 1 son, works Housing: House Patient Tobacco Use Status: Former Tobacco user e-Cigarette/Vaping Use: Never Used service: No Current occupational status: employed Cognitive needs: No Hearing needs: No Vision needs: Yes Questionnaire Thrive Questionnaire Date Thrive assessed: 03/22/24 I am a: Patient What is your living situation today?: I have a steady place to live Within the past 12 months, did the food you bought not last and you didn't have the money to get more?: Never true Within the past 12 months, did you worry whether your food would run out before you got money to buy more?: Never true Do you have trouble paying for medicines?: No Do you have trouble getting transportation to medical appointments?: No Do you have trouble paying your heating and electricity bill?: No Do you have trouble taking care of your child, family member or friend?: No Do you have trouble with day-to-day activities such as bathing, preparing meals, shopping, managing finances, etc.?: No Are you currently unemployed and looking for a job?: No Are you interested in more education?: No Please select the resources that you would like help with: None Currently or been in a relationship where the following occur: No concerns reported THRIVE Score: 0 DENVER-7 AMB Questionnaire DENVER-7 Date DENVER - 7 assessed: 03/22/24 Source: Developed by Drs. Roberto Vergara, Carolin Roy, Shay Campos and colleagues, with an educational goldy from [employer]. Review of Systems Const All systems reviewed & are unremarkable except as noted in HPI and below Reports no additional complaints Eyes Reports no additional complaints ENT Reports no additional complaints Card Reports no additional complaints Resp Reports no additional complaints GI Reports no additional complaints Reports no additional complaints Physical exam (Primary Care) Vital Signs: Last Vital Signs Pulse 96 07/05/24 08:11 BP 116/66 07/05/24 08:11 Pulse Ox 96 07/05/24 08:11 Oxygen Delivery Method Room Air 07/05/24 08:11 BMI result Body Mass Index 24.0 Tobacco/Smoking Status: Tobacco use Status Tobacco use date assessed 07/05/24 07/05/24 08:14 Patient Tobacco Use Status Former Tobacco user 07/05/24 08:11 e-Cigarette/Vaping Use Never Used 07/05/24 08:11 Thrive Assessment: Date of Thrive Assessment Date Thrive assessed 03/22/24 07/05/24 08:11 Currently or been in a relationship where the following occur: No concerns reported Const General: no acute distress HENMT Head: Yes normal to inspection Ears: hearing grossly normal bilaterally General nose exam: Normal external nose present Face and sinus: Yes normal facial exam Mouth: Normal oral and palatal mucosa present Teeth and gingiva: dentition normal Eyes General: appearance normal, both eyes and all related structures Neck Neck: Yes no lymphadenopathy and Yes supple Resp Effort & Inspection: normal respiratory effort Auscultation: clear to auscultation bilaterally Cardio Rhythm: regular rhythm Heart sounds: S1 normal heart sound present and S2 normal heart sound present GI Inspection: Yes normal to inspection Palpation (GI): Soft to palpation Percussion: Yes normal to percussion Auscultation: normal bowel sounds Coding Level of Care Code Est Pt Prev Care >65y(24753) Diagnoses Annual physical exam Z00.00 DM type 2 (diabetes mellitus, type 2) E11.9 Hyperlipidemia E78.5 HTN (hypertension) I10 Assessment & Plan Assessment & Plan (1) Annual physical exam: Code(s): Z00.00 - Encounter for general adult medical examination without abnormal findings Category: Medical Plan: well balanced diet, regular exercise discussed (2) DM type 2 (diabetes mellitus, type 2): Code(s): E11.9 - Type 2 diabetes mellitus without complications Category: Medical Plan: A1C is 6.5, ADA diet regular exercise discussed, continue current medications, follow-up in 4 (3) Hyperlipidemia: Code(s): E78.5 - Hyperlipidemia, unspecified Category: Medical Plan: cont statin (4) HTN (hypertension): Code(s): I10 - Essential (primary) hypertension Category: Medical Plan: Continue current medications Orders: Orders Hemoglobin A1c 4 Months E11.9 - Type 2 diabetes mellitus without complications, E78.5 - Hyperlipidemia, unspecified, I10 - Essential (primary) hypertension Comprehensive [place]. Panel Fast 4 Months E11.9 - Type 2 diabetes mellitus without complications, E78.5 - Hyperlipidemia, unspecified, I10 - Essential (primary) hypertension Lipid Panel 4 Months E11.9 - Type 2 diabetes mellitus without complications, E78.5 - Hyperlipidemia, unspecified, I10 - Essential (primary) hypertension Complete Blood Count Auto Diff 4 Months E11.9 - Type 2 diabetes mellitus without complications, E78.5 - Hyperlipidemia, unspecified, I10 - Essential (primary) hypertension Microalbumin, Random (w Creat) 4 Months E11.9 - Type 2 diabetes mellitus without complications, E78.5 - Hyperlipidemia, unspecified, I10 - Essential (primary) hypertension
[2024-07-05 08:11] VITALS: BP 116/66; PULSE 96; O2SAT 96; BMI 24.0
== END 2024-07-05 08:31 | disposition home or self-care (01) ==
PROVIDERS: PCP Internal Medicine; Visit Provider Internal Medicine
DX: Z00.00 Encounter for general adult medical examination without abnormal findings (principal); E11.9 Type 2 diabetes mellitus without complications; E78.5 Hyperlipidemia, unspecified; I10 Essential (primary) hypertension

== ENCOUNTER → 2024-07-05 08:03 | Outpatient (BNVA) | payer OTHER, SELFPAY | PROVIDERS: PCP Internal Medicine; Visit Provider Internal Medicine ==

== ENCOUNTER 2024-10-30 06:37 | Outpatient (REF) | payer OTHER, SELFPAY ==
[2024-10-30 11:18] LABS: MANUAL DIFF FLAG NO
[2024-10-30 11:27] LABS: Basophils Absolute Auto 0.1 X10*3/uL (0.0-0.2); Basophils Percent Auto 0.7 % (0-2); Eosinophils Absolute Auto 0.1 X10*3/uL (0.0-0.4); Eosinophils Percent Auto 1.4 % (0-4); Hematocrit 49.9 % (42.0-52.0); Hemoglobin 16.3 g/dl (14.0-18.0); Imm Gran Abs Auto 0.03 X10*3/uL (0.00-0.03); Imm Gran Pct Auto 0.3 % (0.0-0.4); Lymphocytes Absolute Auto 2.1 X10*3/uL (1.2-4.9); Lymphocytes Percent Auto 22.9 % (20-40); Mean Corpuscular HGB Conc 32.7 g/dl (31.0-36.0); Mean Corpuscular Hemoglobin 30.1 pg (27.0-33.0); Mean Corpuscular Volume 92.1 fL (80.0-98.0); Mean Platelet Volume 10.2 fL (9.4-12.4); Monocytes Absolute Auto 0.9 X10*3/uL (0.1-1.2); Monocytes Percent Auto 9.6 % (2-11); Neutrophils Percent Auto 65.1 % (45-73); Platelet Count 232 X10*3/uL (160-400); Red Blood Count 5.42 X10*6/uL (4.60-5.80); Red Cell Distribution Width 13.2 % (11.0-16.0); White Blood Count 9.2 X10*3/uL (4.8-10.8)
[2024-10-30 11:38] LABS: Estimated Average Glucose 140 mg/dL; Hemoglobin A1C 199.9241 umol/L; Hemoglobin A1c % 6.5 % (<6.0); Total Hemoglobin (HGBA1C) 4240.4743 umol/L
[2024-10-30 11:59] LABS: Alanine Aminotransferase 26 U/L (0-40); Albumin Level 4.5 g/dL (3.5-5.0); Alkaline Phosphatase 62 U/L (39-117); Anion Gap 14 (12-20); Aspartate Amino Transferase 24 U/L (5-37); Bilirubin Total 0.7 mg/dL (0.0-1.0); Blood Urea Nitrogen 19 mg/dL (9-16); Calcium 9.6 mg/dL (8.4-10.2); Carbon Dioxide 22 mmol/L (22-29); Chloride 109 mmol/L (96-108); Cholesterol 148 mg/dL (<200); Estimated Glomerular Filt Rate > 60; Glucose Fasting 119 mg/dL (60-99); HDL Cholesterol 45 mg/dL (>40); LDL Cholesterol Calculated 88 mg/dL (<100); Potassium 4.9 mmol/L (3.3-5.1); Sodium 140 mmol/L (135-145); Triglycerides 79 mg/dL (<150)
[2024-10-30 12:01] LABS: Microalbum/Creatinine Ratio Ur 13.8 ug/mg cr (<30)
== END 2024-10-30 06:38 | disposition home or self-care (01) ==
LOC: HO.HMGCLDS 06:37
PROVIDERS: PCP Internal Medicine; Visit Provider Internal Medicine
DX: E11.9 Type 2 diabetes mellitus without complications (principal); I10 Essential (primary) hypertension; E78.5 Hyperlipidemia, unspecified
CPT/HCPCS: 36415; 80053; 80061; 82043; 82570; 83036; 85025

== ENCOUNTER 2024-11-09 08:56 | Outpatient (AMB) | payer OTHER, SELFPAY ==
[2024-11-09 09:01] VITALS: BP 110/66; PULSE 99; RESP 18; O2SAT 99; BMI 24.0
--- NOTE | 2024-11-09 09:01 | MHC.PC.OV ---
Vital Signs 11/09/24 09:01 Height 5 ft 7 in Weight 153 lb BMI 24.0 BP 110/66 Blood Pressure Location Rt brachial Position Sitting Respiration 18 Pulse 99 Pulse Source Pulse Oximeter Pulse Oximetry (%) 99 Oxygen Delivery Method Room Air Intake Visit Reasons: 4 months f/up Intake Note: Pt is here today for a 4 months follow up visit on labs. Allergies No Known Allergies Allergy (Verified 11/09/24 09:07) Medication List - Last Reconciled 11/09/24 by Richelle Damon MD atorvastatin 20 mg PO BEDTIME Contour Next EZ Meter (blood-glucose meter) As directed NS Contour Next Test Strips (blood sugar diagnostic) Test blood sugar once a day NS dapagliflozin propanediol (Farxiga) 10 mg PO DAILY hydrocortisone-pramoxine 1-1 % (Proctofoam HC) 1 appl [place] DAILY PRN lancets (Microlet Lancet) Test blood sugar once a day lisinopril 10 mg PO DAILY metformin 1,000 mg PO BID methylcellulose (laxative) (Citrucel Sugar Free oral powder) 2 grams PO DAILY PRN Tobacco use date assessed: 11/09/24 Fall risk assessment: No Falls in past year Last assessed Fall Risk: 11/09/24 Dental Screening Dental Screen Date: 11/09/24 Did you have a dental visit in the last 12 months?: Yes Did you have a dental problem in the last 6 months where you did not have access to dental care?: No Was dental information given to patient?: Patient has dentist HPI 4 months f/up HPI Details Pt presents for f/u DM 2, hyperlipid, HTN, stable on meds. PFSH Medical History Colon polyps Abnormal skin growth HTN (hypertension) DM type 2 (diabetes mellitus, type 2) Hyperlipidemia Surgical History Hx of colonoscopy Family History Father Hypertension Mother Hypertension Diabetes Social History Household Members Other:: , 1 son, works Housing: House Patient Tobacco Use Status: Former Tobacco user e-Cigarette/Vaping Use: Never Used service: No Current occupational status: employed Cognitive needs: No Hearing needs: No Vision needs: Yes Questionnaire PHQ-9 Over the last 2 weeks, how often have you been bothered by any of the following problems? 1. Little interest or pleasure in doing things: not at all 2. Feeling down, depressed, or hopeless: not at all 3. Trouble falling or staying asleep, or sleeping too much: not at all 4. Feeling tired or having little energy: not at all 5. Poor appetite or overeating: not at all 6. Feeling bad about yourself - or that you are a failure or have let yourself or your family down: not at all 7. Trouble concentrating on things, such as reading the newspaper or watching television: not at all 8. Moving or speaking so slowly that other people could have noticed. Or the opposite - being so fidgety or restless that you have been moving around a lot more than usual: not at all 9. Thoughts that you would be better off or of hurting yourself in some way: not at all Total score: 0 Depression Screening Interpretation: Negative Depression Screening Done: Yes 16144 - PHQ-9 Billing: Yes Source: Developed by Drs. Roberto Vergara, Carolin Roy, Shay Campos and colleagues, with an educational goldy from [employer]. Thrive Questionnaire Date Thrive assessed: 11/09/24 I am a: Patient What is your living situation today?: I have a steady place to live Within the past 12 months, did the food you bought not last and you didn't have the money to get more?: Never true Within the past 12 months, did you worry whether your food would run out before you got money to buy more?: Never true Do you have trouble paying for medicines?: No Do you have trouble getting transportation to medical appointments?: No Do you have trouble paying your heating and electricity bill?: No Do you have trouble taking care of your child, family member or friend?: No Do you have trouble with day-to-day activities such as bathing, preparing meals, shopping, managing finances, etc.?: No Are you currently unemployed and looking for a job?: No Are you interested in more education?: No Please select the resources that you would like help with: None Currently or been in a relationship where the following occur: No concerns reported THRIVE Score: 0 AUDIT C Alcohol Use Questionnaire (AUDIT-C) 1. How often do you have a drink containing alcohol?: Never 3. How often do you have six or more drinks on one occasion?: Never Total Score: 0 DENVER-7 AMB Questionnaire DENVER-7 Date DENVER - 7 assessed: 11/09/24 Feeling nervous, anxious, or on edge: 0 = Not at all Not being able to stop or control worryin = Not at all Worrying too much about different things: 0 = Not at all Trouble relaxin = Not at all Being so restless that it is hard to sit still: 0 = Not at all Becoming easily annoyed or irritable: 0 = Not at all Feeling afraid as if something awful might happen: 0 = Not at all Total DENVER-7 score (0-4 normal; 5-9 mild; 10-14 moderate; 15-21 severe): 0 Source: Developed by Drs. Roberto Vergara, Carolin Roy, Shay Campos and colleagues, with an educational goldy from [employer]. DENVER-7 Assessment Billing DENVER-7 Assessment Tool: DENVER-7 Assessment 96160 Physical exam (Primary Care) Vital Signs: Last Vital Signs Pulse 99 11/09/24 09:01 Resp 18 11/09/24 09:01 BP 110/66 11/09/24 09:01 Pulse Ox 99 11/09/24 09:01 Oxygen Delivery Method Room Air 11/09/24 09:01 BMI result Body Mass Index 24.0 Tobacco/Smoking Status: Tobacco use Status Tobacco use date assessed 11/09/24 11/09/24 09:10 Patient Tobacco Use Status Former Tobacco user 11/09/24 09:02 e-Cigarette/Vaping Use Never Used 11/09/24 09:02 PHQ-9: PHQ-9 Score PHQ-9: Total score 0 11/09/24 09:10 Depression Screening Interpretation: Negative Thrive Assessment: Date of Thrive Assessment Date Thrive assessed 11/09/24 11/09/24 09:10 Currently or been in a relationship where the following occur: No concerns reported Const General: no acute distress HENMT Head: Yes normal to inspection Ears: hearing grossly normal bilaterally Face and sinus: Yes normal facial exam Mouth: Normal oral and palatal mucosa present Throat: Yes posterior oropharynx normal Eyes General: appearance normal, both eyes and all related structures Neck Neck: Yes supple Resp Effort & Inspection: normal respiratory effort Auscultation: clear to auscultation bilaterally Cardio Rhythm: regular rhythm Heart sounds: S1 normal heart sound present and S2 normal heart sound present GI Inspection: Yes normal to inspection Palpation (GI): Soft to palpation Percussion: Yes normal to percussion Auscultation: normal bowel sounds Skin General skin exam: no rashes or lesions noted Coding Level of Care Code Est Pt Level 4 (47994) Diagnoses Hyperlipidemia E78.5 DM type 2 (diabetes mellitus, type 2) E11.9 HTN (hypertension) I10 Additional Codes DENVER-7 Assessment Billing - DENVER-7 Assessment Tool: DENVER-7 Assessment [id number] ([id number]) PHQ-9 - 70916 - PHQ-9 Billing: Yes ([id number]) Assessment & Plan Assessment & Plan (1) Hyperlipidemia: Code(s): E78.5 - Hyperlipidemia, unspecified Category: Medical Plan: Continue statin (2) DM type 2 (diabetes mellitus, type 2): Code(s): E11.9 - Type 2 diabetes mellitus without complications Category: Medical Plan: A1c is 6.5, ADA diet regular physical activity continue current medications discussed with the patient (3) HTN (hypertension): Code(s): I10 - Essential (primary) hypertension Category: Medical Plan: Continue lisinopril return in 6 months Orders: Orders Hemoglobin A1c 6 Months E11.9 - Type 2 diabetes mellitus without complications, E78.5 - Hyperlipidemia, unspecified, I10 - Essential (primary) hypertension Comprehensive [place]. Panel Fast 6 Months E11.9 - Type 2 diabetes mellitus without complications, E78.5 - Hyperlipidemia, unspecified, I10 - Essential (primary) hypertension Lipid Panel 6 Months E11.9 - Type 2 diabetes mellitus without complications, E78.5 - Hyperlipidemia, unspecified, I10 - Essential (primary) hypertension Complete Blood Count Auto Diff 6 Months E11.9 - Type 2 diabetes mellitus without complications, E78.5 - Hyperlipidemia, unspecified, I10 - Essential (primary) hypertension Microalbumin, Random (w Creat) 6 Months E11.9 - Type 2 diabetes mellitus without complications, E78.5 - Hyperlipidemia, unspecified, I10 - Essential (primary) hypertension PSA,Total (Free>4and<10) 6 Months E11.9 - Type 2 diabetes mellitus without complications, E78.5 - Hyperlipidemia, unspecified, I10 - Essential (primary) hypertension Medications: Refilled atorvastatin 20 mg PO BEDTIME 90 tabs 3RF metformin 1,000 mg PO BID 180 tabs 3RF Contour Next Test Strips (blood sugar diagnostic) Test blood sugar once a day 100 ea 3RF NS E11.9 - Type 2 diabetes mellitus without complications dapagliflozin propanediol (Farxiga) 10 mg PO DAILY 90 tabs 3RF lisinopril 10 mg PO DAILY 90 tabs 3RF
--- OUTSIDE RECORDS SUMMARY | 2024-11-09 09:42 | XMS_ITS | Encounter Summary ---
Author Organization [facility] Address [address] [place] [address] Care Team Providers Care Rfid Developer Name Role Phone Fina Red MD Primary Care Provider Unavail able Encounter Details Date Type Department Care Team Description 11/06/2017 Release of Information Medical Records [address] [place] [id number] Abstract, Provider Social History Tobacco Use Types Packs/Day Years Used Date Smoking Tobacco: Every Day Cigarettes 0.3 Smokeless Tobacco: Never Comments:pack lasts 1 week Alcohol Use Standard Drinks/Week Comments No 0 (1 standard drink = 0.6 oz pur e alcohol) occ, Sex Assigned at Date Recorded Not on file Job Start Date Occupation Industry Not on file Not on file Not on file documented as of this encounter Plan of Treatment Not on file documented as of this encounter Visit Diagnoses Not on filedocumented in this encounter Care Teams Rfid Developer Relationship Specialty Start Date End Date Fina Red MD PCP - General Internal Medicine 09/05/17 documented as of this encounter
--- OUTSIDE RECORDS SUMMARY | 2024-11-09 09:42 | XMS_ITS | Clinical Summary ---
Author Organization [facility] Address [address] [place] [address] Care Team Providers Care Ocularist Name Role Phone Fina Red MD Primary Care Provider Unavail able Allergies No known active allergies Medications Medication Sig Dispensed Refills Start Date End Date Status glucose monitoring kit (FREESTYLE) monitoring kit Use to test blood sugars daily 1 Kit 0 12/03/2017 Active Blood Glucose Calibration (FREESTYLE CONTROL SOLUTION) Liquid Use with Glucometer 1 Each 0 12/03/2017 Active FreeStyle Lancets Misc USE TO CHECK BLOOD GLUCOSE LEVELS TWICE DAILY 100 Each 5 02/11/2021 Active lisinopril (PRINIVIL,ZESTRIL) 10 MG tablet Take 1 tablet by mouth daily. 90 tablet 0 07/25/2021 Active metformin (GLUCOPHAGE) 1000 MG tablet TAKE 1 TABLET BY MOUTH TWICE DAILY WITH MEALS 180 tablet 1 07/25/2021 Active atorvastatin (LIPITOR) 10 MG tablet Take 1 tablet by mouth daily. 90 tablet 0 07/25/2021 Active Glucose Blood (FREESTYLE LITE) Strip Use to check blood sugars twice daily 200 Strip 0 11/14/2021 Active Active Problems Problem Noted Date History of tobacco abuse 04/19/2019 Type 2 diabetes mellitus wit hout complication, without long-term current use of insulin 12/08/2017 Hyperlipidemia 12/08/2017 Essential hypertension 11/04/2017 Immunizations Name Administration Dates Next Due COVID-19 (Pfizer) Pt Reported 12/10/2020, 021 Influenza Flu (PT Reported) 06/19/2021 Pneumoccoccal(Adult) Polysaccharide PPSV23 03/27 Tdap 11/04/2017 Family History Medical History Relation Name Comments heart problems Father heart problems Mother diabetes Relation Name Status Comments Father Mother Social History Tobacco Use Types Packs/Day Years Used Date Smoking Tobacco: Every Day Cigarettes 0.3 Smokeless Tobacco: Never Comments:pack lasts 1 week Alcohol Use Standard Drinks/Week Comments No 0 (1 standard drink = 0.6 oz pur e alcohol) rarely Sex Assigned at Date Recorded Not on file Job Start Date Occupation Industry Not on file Not on file Not on file Last Filed Vital Signs Vital Sign Reading Time Taken Comments Blood Pressure 130/66 07/25/2021 3:51 PM EST Pulse 76 07/25/2021 3:51 PM EST Temperature 36.9 ??C (98.5 ??F) 07/25/2021 3:51 PM ES T Respiratory Rate 16 07/25/2021 3:51 PM EST Oxygen Saturation 98% 02/13/2018 11:35 AM EDT Inhaled Oxygen Concentration - - Weight 73.5 kg (162 lb) 07/25/2021 3:51 PM EST Height 174 cm (5' 8.5 ) 07/25/2021 3:51 PM EST Body Mass Index 24.27 07/25/2021 3:51 PM EST Plan of Treatment Health Maintenance Due Date Last Done Comments SHINGLES VACCINE (1 of 2) 2005 PNEUMOCOCCAL VACCINE (2 - PCV) 2020 03/27/2018 COLON CANCER SCREENING 02/13/2021 02/13/2018, 2017 DIABETES: BLOOD SUGAR CONTRO L TEST (HGBA1C) 08/11/2021 05/12/2021, 01/13/2021, 09/16/2020, Additional history exists DIABETES: ANNUAL FOOT EXAM 09/18/202109/18, 09/18/2020 (Completed), 04/19/2019, Additional history exists DIABETES/HEART DISEASE: GRIS AL CHOLESTEROL (LDL) 05/12/2022 05/12/2021, 02/26/2020, 06/06/2019, Additional history exists DIABETES: ANNUAL URINE PROTE IN TEST (MICROALBUMIN) 05/12/2022 05/12/2021, 02/27/2020, 06/06/2019, Additional history exists DIABETES: ANNUAL EYE EXAM 06/26/20222020, 07/22/2020, 06/09/2019 (External Completion), Additional history exists Covid-19 Vaccine (3 - 2022-2 4 season) 2024 12/10/2020, 11/19/2020 INFLUENZA (#1) 2024 06/19/2021, 09/08 (External Completion of Vaccination per patient), 06/14/2019 (External Completion), Additional history exists DTAP/TDAP/TD (2 - Td or Tdap) 11/04/2027 11/04/2017 HEPATITIS C SCREENING Completed 11/04/2017 ABDOMINAL AORTIC ANEURYSM (A AA) SCREENING Completed 02/20/2021 Care Teams Ocularist Relationship Specialty Start Date End Date Fina Red MD PCP - General Internal Medicine 09/05/17
--- OUTSIDE RECORDS SUMMARY | 2024-11-09 09:42 | XMS_ITS | Encounter Summary ---
Author Organization [facility] Address [address] [place] [address] Care Team Providers Care Medical Service Representative Name Role Phone Fina Red MD Primary Care Provider Unavail able Encounter Details Date Type Department Care Team Description 02/19/2021 Release of Information Medical Records [address] [place] [id number] [facility] Social History Tobacco Use Types Packs/Day Years [...] on filedocumented in this encounter Care Teams Medical Service Representative Relationship Specialty Start Date End Date Fina Red MD PCP - General Internal Medicine 09/05/17 documented as of this encounter
--- OUTSIDE RECORDS SUMMARY | 2024-11-09 09:42 | XMS_ITS | Encounter Summary ---
Author Organization [facility] Address [address] [place] [address] Care Team Providers Care Residential Electrician Name Role Phone Fina Red MD Primary Care Provider Unavail able Encounter Details Date Type Department Care Team Description 03/21/2018 Orders Only Adult Medicine [address] [address] Julianne Manuel PA-C Diabetes mellitus without complication (HCC) (Primary Dx) Social History Tobacco Use Types Packs/Day Years [...] on file documented as of this encounter Results * MICROALBUMIN/CREATININE, URINE (03/21/2018 4:04 PM EDT) CREAT,RANDOM URINE 72 mg/dL 03/21/2018 4:58 PM EDT [facility] MICROALBUMIN, RANDOM 1.5 0.0 - 29.0 mg/L 03/21/2018 4:58 PM EDT [facility] MICROALB/CRE RATIO RANDOM 2.0 <30.0 mg/g 03/21/2018 4:58 PM EDT [facility] 03/21/2018 4:04 PM EDT 03/21/2018 4:05 PM EDT Julianne Manuel PA-C LAB [facility] [address] [facility] documented in this encounter Visit Diagnoses Diagnosis Diabetes mellitus without complication (HCC)- Primary Type II or unspecified type diabetes mellitus without mention of complication, not stated as uncontrolled documented in this encounter Care Teams Residential Electrician Relationship Specialty Start Date End Date Fina Red MD PCP - General Internal Medicine 09/05/17 documented as of this encounter
--- OUTSIDE RECORDS SUMMARY | 2024-11-09 09:42 | XMS_ITS | Encounter Summary ---
Author Organization [facility] Address [address] [place] [address] Care Team Providers Care Elementary [employer] Teacher Name Role Phone Fina Red MD Primary Care Provider Unavail able Encounter Details Date Type Department Care Team Description 01/18/2021 Telephone Cardio PVCA Diag Testing [address] [facility] [address] [place] [id number] Fina Red MD Social History Tobacco Use Types Packs/Day Years Used Date Smoking Tobacco: Every Day Cigarettes 0.3 Smokeless Tobacco: Never Comments:pack lasts 1 week Alcohol Use Standard Drinks/Week Comments No 0 (1 standard drink = 0.6 oz pur e alcohol) rarely Sex Assigned at Date Recorded Not on file Job Start Date Occupation Industry Not on file Not on file Not on file COVID-19 Exposure Response Date Recorded In the last month, have you been in contact with someone who was confirmed or suspected to have Coronavirus / COVID-19? No / Unsure 01/16/2021 8:17 AM EDT documented as of this encounter Miscellaneous Notes * Telephone Encounter - Fina Red MD - 01/18/2021 10:43 AM EDT Ordered * Telephone Encounter - Jaimee Downey - 01/18/2021 10:30 AM EDT [facility] has received the order for Ramon to have an Aorta Duplex, based on your diagnosis we will need the screening order placed instead. You can use CPT 13819. Once the new order is received we will schedule patient. Thank you documented in this encounter Plan of Treatment Not on file documented as of this encounter Results * US ABDOMINAL AORTA REAL TIME SCREEN STUDY AAA (02/20/2021) Fina Red MD [facility] documented in this encounter Visit Diagnoses Diagnosis Screening for AAA (abdominal aortic aneurysm)- Primary Screening for other and unspecified cardiovascular conditions documented in this encounter Care Teams Elementary [employer] Teacher Relationship Specialty Start Date End Date Fina Red MD PCP - General Internal Medicine 09/05/17 documented as of this encounter
--- OUTSIDE RECORDS SUMMARY | 2024-11-09 09:42 | XMS_ITS | Encounter Summary ---
Author Organization [facility] Address [address] [place] [address] Care Team Providers Care Recreational Director Name Role Phone Fina Red MD Primary Care Provider Unavail able Reason for Visit * Reason Onset Date Comments Medication 01/09/2018 Encounter Details Date Type Department Care Team Description 01/09/2018 Telephone Gastroenterology - [address] [address] Piotr Dougherty MD Medication Social History Tobacco Use Types Packs/Day Years [...] on file documented as of this encounter Miscellaneous Notes * Telephone Encounter - Piotr Dougherty MD - 01/09/2018 11:12 AM EDT Prescribed * Telephone Encounter - Adrianna Layton - 01/09/2018 11:06 AM EDT Patient has scheduled a procedure, please prescribe prep. Thank you! documented in this encounter Plan of Treatment Not on file documented as of this encounter Visit Diagnoses Not on filedocumented in this encounter Care Teams Recreational Director Relationship Specialty Start Date End Date Fina Red MD PCP - General Internal Medicine 09/05/17 documented as of this encounter
--- OUTSIDE RECORDS SUMMARY | 2024-11-09 09:42 | XMS_ITS | Encounter Summary ---
Author Organization [facility] Address [address] [place] [address] Care Team Providers Care Fagoting Machine Operator Name Role Phone Fina Red MD Primary Care Provider Unavail able Reason for Visit * Reason Onset Date Comments TEST RESULTS 11/12/2017 results note Encounter Details Date Type Department Care Team Description 11/12/2017 Telephone Adult Medicine [address] [address] Fina Red MD TEST RESULTS (results note) Social History Tobacco Use Types Packs/Day Years [...] encounter Miscellaneous Notes * Telephone Encounter - Asif Hernandez M.A. - 11/12/2017 9:21 AM EST Patient all set. Was patient completely fasting from food and beverages 1 labwork was done? Cholesterol and blood sugar slightly high. If fasting we'll obtain A1c. If not he should repeat labs. Telephone Information: documented in this encounter Plan of Treatment Not on file documented as of this encounter Results * (ABNORMAL) HEMOGLOBIN A1C (11/23/2017 9:54 AM EDT) GLYCATED HEMOGLOBIN A1C 9.1(H) <6.5 % 11/24/2017 9:54 AM EDT [facility] ESTIMATED AVERAGE GLUCOSE 214 mg/dL 11/24/2017 9:54 AM EDT [facility] 11/23/2017 9:54 AM EDT 11/23/2017 9:54 AM EDT Fina Red MD LAB [facility] documented in this encounter Visit Diagnoses Diagnosis Elevated blood sugar- Primary Other abnormal glucose documented in this encounter Care Teams Fagoting Machine Operator Relationship Specialty Start Date End Date Fina Red MD PCP - General Internal Medicine 09/05/17 documented as of this encounter
== END 2024-11-09 09:40 | disposition home or self-care (01) ==
PROVIDERS: PCP Internal Medicine; Visit Provider Internal Medicine
DX: E78.5 Hyperlipidemia, unspecified (principal); E11.9 Type 2 diabetes mellitus without complications; I10 Essential (primary) hypertension

== ENCOUNTER → 2024-11-09 08:56 | Outpatient (BNVA) | payer OTHER, SELFPAY | PROVIDERS: PCP Internal Medicine; Visit Provider Internal Medicine | DX: E78.5 Hyperlipidemia, unspecified (principal); E11.9 Type 2 diabetes mellitus without complications; I10 Essential (primary) hypertension; Z79.899 Other long term (current) drug therapy | CPT/HCPCS: 96127 ==